=== PATIENT | female | born 1995 | race Caucasian/White ===

== ENCOUNTER 2016-07-27 20:14 | Emergency (ER) | payer MEDICAID ==
[~2016-07-27] VITALS: Ht 167.6 cm; Wt 60.0 kg
[~2016-07-27 20:14] MED LIST: IBUP-1222 PO; METO10TA2 PO; METO10TA82 PO; NITR100C56 PO; NITR100C57 PO; ONDA4SOL2 IVPush; ONDA4TAB10 PO; ONDA4TAB7 PO; OXYC-302 PO; OXYC1TAB9 PO; PREN1TAB60 PO; SERT50TA PO; TRIA10PO2 TP; [UNRECOGNIZED DRUG - CODE] IV
[2016-07-27 20:36] VITALS: BP 130/76
[2016-07-27 20:58] LABS: DAU SCREEN DISCLAIMER
[2016-07-27 21:26] LABS: BLOOD UREA NITROGEN 15 mg/dL (7-18)
[2016-07-27 21:27] LABS: ACETAMINOPHEN < 2 mcg/mL (10-30)
== END 2016-07-27 22:34 | disposition home or self-care (01) ==
LOC: ED 22:20
DX: F33.0 Major depressive disorder, recurrent, mild (principal); F41.1 Generalized anxiety disorder
CPT/HCPCS: 36415; 80048; 80307; 80329; 82040; 84703; 85025; 99284; G0480

== ENCOUNTER 2016-09-24 19:57 | Emergency (ER) | payer MEDICAID ==
[~2016-09-24] VITALS: Ht 167.6 cm; Wt 73.0 kg
[2016-09-24 20:05] VITALS: BP 116/72
== END 2016-09-24 20:41 | disposition home or self-care (01) ==
LOC: ED 20:25
DX: K02.9 Dental caries, unspecified (principal); F41.9 Anxiety disorder, unspecified; F32.9 Major depressive disorder, single episode, unspecified
CPT/HCPCS: 99283

== ENCOUNTER 2017-02-18 17:32 | Emergency (ER) | payer MEDICAID ==
[~2017-02-18] VITALS: Ht 167.6 cm; Wt 73.7 kg
[2017-02-18 17:34] VITALS: BP 123/68
[2017-02-18] MEDS ORDERED: MAALOX/HYOSCYAMINE/LIDOCAINE 45 ML BTL ONE (18:19)
[2017-02-18] MEDS ORDERED: MAALOX/HYOSCYAMINE/LIDOCAINE 45 ML BTL PO ONE (18:30)
== END 2017-02-18 18:58 | disposition home or self-care (01) ==
LOC: ED 18:20
DX: R07.89 Other chest pain (principal)
CPT/HCPCS: 71046; 93005; 99284

== ENCOUNTER 2017-03-22 22:02 | Emergency (ER) | payer MEDICAID ==
[~2017-03-22] VITALS: Ht 167.6 cm; Wt 71.1 kg
[2017-03-22 22:04] VITALS: BP 124/75
[2017-03-22] MEDS ORDERED: ACETAMINOPHEN 325 MG TABLET ONE (22:18)
[2017-03-22] MEDS ORDERED: ACETAMINOPHEN 325 MG TABLET PO ONE (22:30)
[2017-03-22] MEDS ORDERED: DEXAMETHASONE 4 MG TABLET ONE ×2 (22:43→22:46)
[2017-03-22] MEDS ORDERED: DEXAMETHASONE 4 MG TABLET PO ONE (23:00)
[2017-03-22] MEDS ORDERED: AMOXICILLIN/CLAV 875-125MG TABLET PO ONE (23:00)
== END 2017-03-23 00:10 | disposition home or self-care (01) ==
LOC: ED 22:45
DX: J03.00 Acute streptococcal tonsillitis, unspecified (principal); R50.9 Fever, unspecified
CPT/HCPCS: 99284